=== PATIENT | female | born 1990 | race Hispanic/Latino ===

== ENCOUNTER 2017-06-04 12:56 | Emergency (ER) | payer SELFPAY ==
[2017-06-04] MEDS ORDERED: Fluorescein Opthalmic Strip ONE (13:46)
[2017-06-04] MEDS ORDERED: Proparacaine 0.5% Opth 15 ML BOT ONE (13:46)
[2017-06-04] MEDS ORDERED: Ciprofloxacin 0.3% Ophth Drops 2.5 ml Bottle R EYE SCH (14:30)
[2017-06-04] MEDS ORDERED: Acyclovir 800 mg Tablet PO SCH (15:00)
== END 2017-06-04 15:10 | disposition home or self-care (01) ==
LOC: ERS 12:56
DX: B02.9 Zoster without complications (principal)
CPT/HCPCS: 99282

== ENCOUNTER 2017-08-25 11:44 | Observation (INO) | payer SELFPAY ==
[~2017-08-25 11:44] MED LIST: ISOVUE-370 76%-LOCM 1 ML ONE
[2017-08-25] MEDS ORDERED: Acetaminophen 500 MG TAB ONE (13:11)
[2017-08-25 13:35] LABS: #Eosinphils 0.1 thou/uL (0.0-0.7); #Lymphocytes 2.2 thou/uL (1.20-3.40); #Monocytes 0.8 thou/uL (0.11-0.59); %Basophils 0.3 % (0.0-1.0); %Eosinophils 0.9 % (0.0-10.0); %Lymphocytes 31.6 % (21.0-51.0); %Monocytes 10.7 % (0.0-10.0); %Neutrophils 56.5 % (42.0-75.0); Hemoglobin 13.4 g/dL (12.0-16.0); Mean Corpuscular HGB CONC 35.5 g/dL (32.0-36.0); Mean Corpuscular Hemoglobin 29.5 pg (27.0-31.0); Mean Corpuscular Volume 83.1 fl (81.0-99.0); Mean Platelet Volume 8.1 fL (7.4-10.4); Platelet Count 248 thou/uL (130-400); RBC Distribution Width 11.1 % (11.5-14.5); Red Blood Cell (RBC) Count 4.52 mill/uL (4.20-5.40)
--- NOTE | 2017-08-25 14:00 | RAD ---
PORTABLE UPRIGHT CHEST: HISTORY: A 26-year-old female with a history of a headache and flu symptoms. Sepsis alert. COMPARISON: 12/23/2015 FINDINGS: Heart size is normal. Lungs are clear. No pneumonia, edema, pleural effusion, or other acute proces s. POS: [facility]
[2017-08-25 14:12] LABS: Bilirubin Small (Negative); Blood, Urine Negative (Negative); Clarity CLEAR (Clear); Glucose, Urine (Dipstick) Negative (Negative); Leukocyte Moderate (Negative); Nitrite Negative (Negative); Protein, Urine (Dipstick) Negative (Neg-Trace); Specific Gravity, Urine 1.023 (1.002-1.036)
[2017-08-25 14:13] LABS: Pregnancy Test - Urine (BHCG) Negative (Negative); Pregu Control Background? CLEAR/WHITE (CLR/WHITE); Pregu Control Bar Appear? YES (CONTROL BAR); Specific Gravity 1.023 (1.002-1.036)
[2017-08-25 14:13] LABS: ALT (SGPT) 31 U/L (8-55); AST (SGOT) 40 U/L (5-34); Albumin 4.5 g/dL (3.5-5.0); Alkaline Phosphatase 166 U/L (40-150); Anion Gap 16 mmol/L (10-20); BUN (Urea Nitrogen) 16 mg/dL (7.0-18.7); Bilirubin, Total 0.7 mg/dL (0.2-1.2); Calc. Creatinine Clearance 0 mL/min (70-130); Calcium 9.2 mg/dL (7.8-10.44); Carbon Dioxide 21 mmol/L (22-29); Chloride 100 mmol/L (98-107); Estimated GFR-MDRD 89; Globulin 3.5 g/dL (2.4-3.5); Glucose 77 mg/dL (70-105); Potassium 3.8 mmol/L (3.5-5.1); Sodium 133 mmol/L (136-145)
[2017-08-25 14:14] LABS: Bacteria/HPF None Seen HPF (None Seen); Hyaline Casts/LPF 0-3 HYALINE CAST LPF (0-3 Hyaline); Pathc Cast-AUWi Flag 0.43 (0-2.49); Squamous Epithelial 0-3 HPF (0-3); WBC/HPF 21-50 HPF (0-3)
--- NOTE | 2017-08-25 15:09 | CT ---
ABDOMEN AND PELVIS CT SCAN WITH IV CONTRAST: HISTORY: A 26-year-old female with a history of abdominal pain, primarily umbilical, with fever, headache, and diarrhea. FINDINGS: The lung bases are clear. The visualized liver, gallbladder, pancreas, spleen, and adrenal glands ar e unremarkable. No renal calculi or acute obstruction. There is a minimally abnormally dilated, thick walled, enhancing appendix, evidence for acute appendicitis. No evidence of associated abscess or significant free fluid. No bowel obstruction. IMPRESSION: Evidence for acute appendicitis. Findings were discussed with Coy, because Dr. Blount was in with a patient, and he indicated that nathalia would give her this message, that the patient did have acute appendicitis. This call was made at 3 :03 p.m. JOSEPH CR
[2017-08-25] MEDS ORDERED: diphenhydrAMINE 50 MG/ML VIAL ONE (15:12)
[2017-08-25] MEDS ORDERED: Midazolam HCl 2 mg/2 ml Vial ONE (15:44)
[2017-08-25] MEDS ORDERED: Fentanyl 250 MCG/5 ML VIAL ONE (15:44)
[2017-08-25] MEDS ORDERED: Bupivacaine/Epinephrine 0.25% 30 ML VIAL ONE (15:45)
[2017-08-25] MEDS ORDERED: Lidocaine 1% PF 5 ML VIAL ONE (15:47)
[2017-08-25] MEDS ORDERED: Ondansetron HCl/PF 4 MG/2 ML Vial ONE (15:47)
[2017-08-25] MEDS ORDERED: Glycopyrrolate 0.2 MG/ML 5 ML SYRINGE ONE (15:47)
[2017-08-25] MEDS ORDERED: Succinylcholine Chloride 20 MG/ML 10 ml SYRINGE FS ONE (15:47)
[2017-08-25] MEDS ORDERED: Ketorolac Tromethamine 30 MG/ML VIAL ONE (15:47)
[2017-08-25] MEDS ORDERED: ePHEDrine/0.9% NaCl/PF SYRINGE 50 mg/10 ml ONE (15:47)
[2017-08-25] MEDS ORDERED: Dexamethasone 20 MG/5 ML VIAL ONE (15:47)
[2017-08-25] MEDS ORDERED: Propofol 200 MG/20 ML VIAL ONE (15:47)
[2017-08-25] MEDS ORDERED: PHENYLEPHRINE-NS 100 MCG/ML 10 ML SYRINGE ONE (15:47)
--- NOTE | 2017-08-25 16:14 | HP ---
DATE OF ADMISSION: 08/25/2017 HISTORY OF PRESENT ILLNESS: [facility] is [facility] 26[facility] a [facility] of insidious onset periumbilical abdominal pain which started 4 days ago. Pain in tensified over 24 hours and got better. As a result, the patient assumed nothing of it. Forty eight hours into the onset of pain, she started having some fever intermittently and chills ass ociated with some diarrhea. The patient presented to the emergency department today because the pain had failed to resolve. In fact, she reports pain has intensified and now settled in the right lower quadrant. She denies any emesis; however, reports multiple episodes of nausea. She admits to chill s, not febrile at this time. PAST MEDICAL HISTORY: She denies any previous medical problems. PAST SURGICAL HISTORY: The patient denies any previous surgeries. SOCIAL HISTORY: She is single, currently unemployed and lives at home with her parents. She denies any cigarette smoking, ethanol or illicit drug abuse. FAMILY HISTORY: Notable for diabetes mellitus in both parents and her father with essential hyperten elenita and heart disease. She denies any family history of cancer. CURRENT MEDICATIONS: None. ALLERGIES: Patient denies any known drug allergies. REVIEW OF SYSTEMS: Ten point review of system is essentially unremarkable except for as stated in pa st medical history and chief complaint. PHYSICAL EXAMINATION: GENERAL: This reveals a 26-year-old normally developed woman who is otherwise coherent and interacti ve and appears stated age. The patient is alert and oriented x3, appears to be in moderate acute dis tress secondary to right lower quadrant abdominal pain. VITAL SIGNS: Currently includes blood pressure 95/54, pulse is 91, respiratory rate 18, temperature is 98.7 degrees Fahrenheit, oxygen saturation is 97% on room air. HEENT: Reveals normocephalic and atraumatic. Pupils are equal, round, reactive to light and accommo dation. Extraocular muscles are intact bilaterally. She has no sclerae icterus present. Oral mucos a is pink and moist. No lesions are noted. NECK: Supple. No palpable lymphadenopathy or thyromegaly present. HEART: Reveals regular rate and rhythm, no murmurs or gallops auscultated. LUNGS: Clear to auscultation bilaterally. Her breathing is regular and unlabored. ABDOMEN: Soft and protuberant. She has right lower quadrant tenderness to palpation. She has a pos itive Rovsing sign. Liver and spleen are otherwise nonpalpable below costal margins. EXTREMITIES: Reveals 2+ radial and pedal pulses bilaterally. No ankle edema is present. NEUROLOGIC: Cranial nerves II through XII grossly intact bilaterally. No focal neurologic deficits are present. PERTINENT LABORATORY FINDINGS: Includes CBC with 7000 white blood cells, hemoglobin 13.4, hematocrit is 37.6, platelet count is 248,000. Metabolic profile: Sodium 133, potassium 3.8, chloride is 100, bicarbonate 21, BUN 16, creatinine 0.77, glucose 77, total bilirubin 0.7; AST and ALT 40 and 31 resp ectively. Alkaline phosphatase is 166. Urinalysis is significant for moderate leukocyte esterase, 2 1-50 wbc's, 0-3 squamous epithelial cells, no bacteria. test is negative. I personally re viewed the CT scan of the abdomen and pelvis which is remarkable for dilated appendix with periappend iceal fat stranding. IMPRESSION: 1. Acute appendicitis, likely with perforation given 4-day history of abdominal pain. 2. Sterile pyuria, likely secondary to acute appendicitis. PLAN: 1. Laparoscopic appendectomy. 2. I advised the patient of the above findings and recommendation. I have also informed the patient of the risk and benefits of the proposed surgery. Risks include, bu t not limited to bleeding, infection, injury to bowel and surrounding structures. This information was given to the patient in the presence of her nurse. She indicates understanding of the information given. I answered her questions. The patient has granted consent for this admiss ion and surgical intervention.
[2017-08-25] MEDS ORDERED: Promethazine HCl 25 MG/ML VIAL SLOW IVP PRN (17:11)
[2017-08-25] MEDS ORDERED: Morphine Sulfate 2 MG/ML SYRINGE SLOW IVP PRN (17:11)
[2017-08-25] MEDS ORDERED: Meperidine HCl/PF 25 MG/ML VIAL SLOW IVP PRN (17:11)
[2017-08-25] MEDS ORDERED: Ondansetron HCl/PF 4 MG/2 ML Vial IVP PRN (18:02)
[2017-08-25] MEDS ORDERED: Dextrose 50% Abboject 50 ML SYRINGE SLOW IVP PRN (18:02)
[2017-08-25] MEDS ORDERED: hydrALAZINE 20 MG/ML VIAL SLOW IVP PRN (18:02)
[2017-08-25] MEDS ORDERED: Promethazine HCl 25 MG/ML VIAL IM PRN (18:02)
[2017-08-25] MEDS ORDERED: Dextrose 5% in Water 1,000 ML IV PRN (18:02)
[2017-08-25] MEDS ORDERED: Ketorolac Tromethamine 30 MG/ML VIAL IVP PRN (18:02)
[2017-08-25] MEDS ORDERED: traMADol HCl 50 MG TAB PO PRN ×2 (18:04)
--- NOTE | 2017-08-25 18:43 | OP ---
DATE OF OPERATION: 08/25/2017 PREOPERATIVE DIAGNOSIS: Acute appendicitis. POSTOPERATIVE DIAGNOSIS: Acute appendicitis with a retrocecal appendix. PROCEDURES PERFORMED: Laparoscopic appendectomy. SURGEON: Calvin Santiago D.O. ANESTHESIA: General endotracheal. ESTIMATED BLOOD LOSS: 10 mL. FLUIDS GIVEN: 1000 mL crystalloids. URINARY OUTPUT: 650 mL. COUNTS: Sponge and instrument count certified as correct x2. COMPLICATIONS: None apparent at the time of operation. INDICATIONS FOR PROCEDURE: This is a 26-year-old woman presented with 4-day history of abdo lexi pain. Clinical and radiographic examination was consistent with acute appendicitis for which ghada chappell was brought to the operating room for appendectomy. Findings are consistent with inflamed retrocecal appendix, no evidence of perforation. DESCRIPTION OF PROCEDURE: Informed consent was obtained from the patient who was brought to the oper ating room and placed in supine position. Following general anesthesia, Varma catheter was inserted and placed bedside drain. Abdomen was sterilely prepped and draped in usual fashion. The skin below the umbilicus was infiltrated with 0.25% Marcaine with epinephrine. A small curvilinear infraumbili rio incision was made using an 11 scalpel. Umbilical stalk was grasped with a Alpesh and elevated. Veress needle was inserted through the incision and placed in the peritoneal cavity through which the abdomen was insufflated with 3 liters of CO2 gas. Intraabdominal pressure was noted at 1 mmHg. Fol lowing abdominal insufflation, Veress needle was removed and a 5-mm trocar inserted through the incis ion and placed in the peritoneal cavity using Visiport under laparoscopy. Laparoscopy confirmed prop er placement of the port, no injuries to underlying structures. An additional laparoscopy revealed t he right lower quadrant obscured by omental adhesions. Under direct laparoscopy, 5-mm suprapubic and a 12-mm left lower quadrant ports were placed after the overlying skin was infiltrated with 0.25% Ma rcaine with epinephrine and appropriate incision was made. The patient was placed in a Trendelenburg position, rotated to her left. I introduced the [employer] grasper through the left lower quadrant port site using this to bluntly sushila e down omental adhesions to reveal the cecum in the right lower quadrant. I was able to manipulate the cecum, mobilizing this medially to expose the base of the retrocecal brit endix. The appendix was extended to the right lateral gutter with fibrinous attachments. These were bluntly taken down using a Prestige grasper. I then introduced an Endo Tna forceps through the suprapub ic port site grasping the appendix which was elevated. I used a [place] dissector to create a rent through the base of the mesoappendix. I introduced an Endo-RYAN with a blue load to divide the append ix at appendicocecal junction. Using a white load of the Endo-RYAN, the mesoappendix was divided with good hemostasis. Appendix was delivered of the abdominal cavity using an EndoCatch. Operative site was irrigated with saline. Inspected base for good hemostasis. Finding no other pathology, I ran t he small bowel tube approximately 2 feet. No Meckel's diverticulum was noted. Laparoscopy was termi nated at this juncture. Fascia of the left lower quadrant port was closed using 0 Vicryl suture and Endo closure device under laparoscopy. Abdomen was desufflated. All ports and instruments removed a nd accounted for. Skin incision was closed using 4-0 Monocryl suture in subcuticular fashion. [place]ajaro correia was applied over the incisions. The patient tolerated the operation without any apparent compli cation and was returned to the recovery room in satisfactory condition.
[2017-08-25] MEDS: Lactated Ringer's 1,000 ML IV SCH (19:18)
[2017-08-25] MEDS: Famotidine 20 MG TAB PO SCH (21:19)
[2017-08-25] MEDS: Famotidine/PF 20 mg/2ml Vial SLOW IVP SCH (21:19)
--- NOTE | 2017-08-25 22:28 | PRG ---
DATE OF SERVICE: 08/25/2017 SUBJECTIVE: The patient is status post acute appendicitis with retrocecal appendix. The patient und erwent a laparoscopic appendectomy this afternoon. She tolerated the procedure well and is currently up on the surgical floor. She is awake, alert, and appropriate. Denies any nausea or vomiting or s ignificant abdominal pain. PHYSICAL EXAMINATION: VITAL SIGNS: Temperature is 98.3, heart rate 79, blood pressure 102/66, respirations 14, and oxygen saturation 93% on room air. GENERAL: The patient is resting comfortably. She is alert, oriented, and appropriate. ABDOMEN: Soft, minimally tender. Her postop dressing is clean, dry, and intact. ASSESSMENT AND PLAN: Status post laparoscopic appendectomy. Plan will be to continue supportive car e, p.o. pain medicines, diet as tolerated, and most likely discharge to home tomorrow.
[2017-08-25] MEDS: Acetaminophen 500 MG TAB PO SCH (23:08)
[2017-08-25] MEDS: Piperacillin/Tazobactam 3.375 GM in Sodium Chloride 0.9% 100 ML IVPB SCH (23:08)
[2017-08-26] MEDS: Lactated Ringer's 1,000 ML IV SCH (05:39)
[2017-08-26] MEDS: Acetaminophen 500 MG TAB PO SCH ×2 (05:40→12:30)
[2017-08-26] MEDS: Piperacillin/Tazobactam 3.375 GM in Sodium Chloride 0.9% 100 ML IVPB SCH (05:40)
[2017-08-26] MEDS: Famotidine/PF 20 mg/2ml Vial SLOW IVP SCH (09:00)
[2017-08-26] MEDS: Famotidine 20 MG TAB PO SCH (09:00)
[2017-08-26 11:31] VITALS: BP 95/60; TEMP 97.8
--- NOTE | 2017-08-26 11:48 | DIS ---
DATE OF ADMISSION: 08/25/2017 DATE OF DISCHARGE: 08/26/2017 ADMITTING AND DISCHARGING PHYSICIAN: Calvin Santiago DO ADMITTING AND DISCHARGE DIAGNOSES: Acute appendicitis. OPERATIONS PERFORMED: Laparoscopic appendectomy on 08/25/2017. Please see separate dictation for op erative report. HISTORY AND HOSPITAL COURSE: A 26-year-old woman presented with a 4-day history of abdomina l pain. Clinical radiographic examination was consistent with acute appendicitis for which patient w as brought to the operating room for appendectomy. Following surgery, the patient was admitted to surgical floor where she remained in time of discharge . Postop day #1, she is ambulating with minimum difficulty. Her pain is adequately controlled on oral analgesics. She is tolerating a general diet, having normal bowel and urinary function. Abdominal examination reveals incisional wounds which intact, clean, and dry. She has no peritoneal signs on examination. The patient has remained hemodynamically stable and afebrile through this hospitalization. She has been discharged home today with the following instructions: 1. She sees me in the Surgery [facility] in 2 weeks. She is to avoid weightlifting in excess of 20 poun ds until she has been released by me. She may shower effective tomorrow and avoid swimming or dippin g herself in the bathtub. 2. She is to call me with any questions or problems including exacerbation of abdominal pain, fever in excess of 101 degrees Fahrenheit, abnormal drainage from the incisional wounds or any intolerance to oral intake. Discharge instruction was given to the patient in the presence of a nurse. She indicates understandi ng of information given. She has been given a prescription for tramadol 50 mg #30 to be taken 1-2 p.o. q.6 hours p.r.n. pain may alternate this with Tylenol 1000 mg p.o. q.6 hours or ibuprofen 600 mg p.o. q.8 hours. The patient has expressed deep gratitude for the care and nurture during this hospitalization and jluis gordon.
== END 2017-08-26 15:02 | disposition home or self-care (01) ==
LOC: ERS 11:44 → SJJU 18:38
PROVIDERS: ADMIT Surgery; ATTEND Surgery
PROC: 0DTJ4ZZ Resection of Appendix, Percutaneous Endoscopic Approach (ICD-10-PCS; principal; 2017-08-25)
DX: K35.80 Unspecified acute appendicitis (principal); Z88.2 Allergy status to sulfonamides
CPT/HCPCS: 71045; 74177; 80053; 81003; 81015; 81025; 83605; 85025; 87040; 87086; 87804; 88304; 96361; 96365; 96375; G0378; J0696; J1100; J1200; J1885; J2001; J2250; J2405; J2543; J2704; J3010; J3370; J7050

== ENCOUNTER 2021-06-28 11:02 | Emergency (ER) | payer SELFPAY ==
[2021-06-28] MEDS ORDERED: Acetaminophen 325 MG TAB ONE ×2 (12:02→12:05)
[2021-06-28] MEDS ORDERED: Ibuprofen 200 MG TAB ONE ×2 (12:02→12:06)
[2021-06-28] MEDS ORDERED: Metoclopramide HCl 10 MG TAB ONE (13:00)
[2021-06-28 19:54] LABS: SARS-CoV-2 PCR by NAA DETECTED (NotDetected)
== END 2021-06-28 14:05 | disposition home or self-care (01) ==
LOC: ERS 11:02
DX: U07.1 COVID-19 (principal)
CPT/HCPCS: 70450; U0003; U0005

== ENCOUNTER 2021-06-28 15:50 | Inpatient (IN) | payer OTHER, SELFPAY ==
[2021-06-28 16:47] LABS: #Basophils 0.1 thou/uL (0.0-0.2); #Eosinphils 0.2 thou/uL (0.0-0.7); #Monocytes 0.6 thou/uL (0.11-0.59); #Neutrophils 4.8 thou/uL (1.40-6.50); %Basophils 1.4 % (0.0-1.0); %Eosinophils 2.6 % (0.0-10.0); %Lymphocytes 26.2 % (21.0-51.0); %Monocytes 7.4 % (0.0-10.0); %Neutrophils 62.3 % (42.0-75.0); Hemoglobin 11.3 g/dL (12.0-16.0); Mean Corpuscular HGB CONC 37.3 g/dL (32.0-36.0); Mean Corpuscular Hemoglobin 30.5 pg (27.0-31.0); Mean Corpuscular Volume 81.8 fL (78.0-98.0); Platelet Count 188 thou/uL (130-400); RBC Distribution Width 10.9 % (11.5-14.5); Red Blood Cell (RBC) Count 3.72 mill/uL (4.20-5.40); White Blood Cell (WBC) Count 7.6 thou/uL (4.8-10.8)
[2021-06-28 17:02] LABS: ALT (SGPT) 16 U/L (8-55); AST (SGOT) 30 U/L (5-34); Albumin 4.4 g/dL (3.5-5.0); Alkaline Phosphatase 88 U/L (40-110); Anion Gap 20 mmol/L (10-20); BUN (Urea Nitrogen) 5 mg/dL (7.0-18.7); Bilirubin, Total 0.6 mg/dL (0.2-1.2); Calc. Creatinine Clearance 0 mL/min (70-130); Calcium 8.7 mg/dL (7.8-10.44); Carbon Dioxide 18 mmol/L (22-29); Chloride 75 mmol/L (98-107); Globulin 2.5 g/dL (2.4-3.5); Glucose 65 mg/dL (70-105); Potassium 3.7 mmol/L (3.5-5.1); Protein, Total 6.9 g/dL (6.0-8.3)
[2021-06-28 17:27] LABS: Sodium 109 mmol/L (136-145)
[2021-06-28] MEDS ORDERED: Ketorolac Tromethamine 30 MG/ML VIAL ONE ×2 (18:48→21:14)
[2021-06-28] MEDS ORDERED: Ondansetron PF 4 MG/2 ML Vial ONE ×2 (18:48→20:28)
[2021-06-28 18:50] LABS: Anion Gap 15 mmol/L (10-20); BUN (Urea Nitrogen) 6 mg/dL (7.0-18.7); Calc. Creatinine Clearance 0 mL/min (70-130); Calcium 8.3 mg/dL (7.8-10.44); Carbon Dioxide 19 mmol/L (22-29); Chloride 76 mmol/L (98-107); Glucose 67 mg/dL (70-105); Potassium 3.3 mmol/L (3.5-5.1)
[2021-06-28 18:53] LABS: Sodium 107 mmol/L (136-145)
[2021-06-28] MEDS ORDERED: Electrolyte Replacement Protocol 1 EACH FS SCH (19:30)
[2021-06-28] MEDS: Ondansetron PF 4 MG/2 ML Vial IVP PRN (20:32)
[2021-06-28] MEDS: Ketorolac Tromethamine 30 MG/ML VIAL IVP PRN (21:21)
[2021-06-28] MEDS ORDERED: Acetaminophen 325 MG TAB ONE (21:57)
[2021-06-28] MEDS: Acetaminophen 325 MG TAB PO PRN (22:03)
[2021-06-28 22:26] LABS: Bilirubin Negative (Negative); Blood, Urine Negative (Negative); Glucose, Urine (Dipstick) Negative (Negative); Ketone, Urine > or equal to 80 mg/dL (Negative); Leukocyte Trace (Negative); Nitrite Negative (Negative); Protein, Urine (Dipstick) Negative (Neg-Trace); Urobilinogen 0.2 mg/dL (Less than 2); pH, Urine 6.5 (5.0-9.0)
[2021-06-28 22:27] LABS: Anion Gap 10 mmol/L (10-20); BUN (Urea Nitrogen) 5 mg/dL (7.0-18.7); Calc. Creatinine Clearance 0 mL/min (70-130); Calcium 7.8 mg/dL (7.8-10.44); Carbon Dioxide 20 mmol/L (22-29); Chloride 79 mmol/L (98-107); Glucose 73 mg/dL (70-105); Magnesium 1.5 mg/dL (1.6-2.6); Potassium 3.4 mmol/L (3.5-5.1); Sodium 106 mmol/L (136-145)
[2021-06-28 22:32] LABS: Clarity Clear (Clear)
[2021-06-28 22:35] LABS: Bacteria/HPF 3+ HPF (None Seen); RBC/HPF 0-3 HPF (0-3); Squamous Epithelial 0-3 HPF (0-3)
[2021-06-28] MEDS ORDERED: Potassium Chloride 20 MEQ TAB PO SCH (23:30)
[2021-06-28] MEDS ORDERED: Sodium Chloride 256 MEQ in Sterile Water Injection 936 ML IV SCH (23:30)
[2021-06-28] MEDS ORDERED: Magnesium 2 GM/50 ML 2 GM in Premix Bag 1 BAG IVPB SCH (23:30)
[2021-06-28] MEDS ORDERED: Potassium Chloride 20 MEQ TAB ONE (23:53)
[2021-06-29] MEDS ORDERED: Magnesium 2 GM/50 ML BAG (IN WATER) ONE (00:56)
[2021-06-29] MEDS: Ketorolac Tromethamine 30 MG/ML VIAL IVP PRN (02:01)
[2021-06-29] MEDS: Acetaminophen 325 MG TAB PO PRN ×4 (02:12→23:04)
[2021-06-29] MEDS ORDERED: HYDROcodone/Acetaminophen 7.5/325 mg Tablet PO SCH (03:15)
[2021-06-29] MEDS: Ondansetron PF 4 MG/2 ML Vial IVP PRN ×2 (04:12→13:31)
[2021-06-29 04:19] LABS: #Eosinphils 0.2 thou/uL (0.0-0.7); #Lymphocytes 1.8 thou/uL (1.20-3.40); #Monocytes 0.5 thou/uL (0.11-0.59); #Neutrophils 4.4 thou/uL (1.40-6.50); %Basophils 0.4 % (0.0-1.0); %Eosinophils 2.2 % (0.0-10.0); %Lymphocytes 26.8 % (21.0-51.0); %Monocytes 6.9 % (0.0-10.0); %Neutrophils 63.7 % (42.0-75.0); Hemoglobin 10.9 g/dL (12.0-16.0); Mean Corpuscular HGB CONC 36.6 g/dL (32.0-36.0); Mean Corpuscular Hemoglobin 30.2 pg (27.0-31.0); Mean Corpuscular Volume 82.4 fL (78.0-98.0); Mean Platelet Volume 8.2 fL (7.4-10.4); Platelet Count 196 thou/uL (130-400); RBC Distribution Width 10.9 % (11.5-14.5); White Blood Cell (WBC) Count 6.9 thou/uL (4.8-10.8)
[2021-06-29 04:36] LABS: Anion Gap 13 mmol/L (10-20); BUN (Urea Nitrogen) Less than 4 mg/dL (7.0-18.7); Calc. Creatinine Clearance 100 mL/min (70-130); Calcium 7.8 mg/dL (7.8-10.44); Carbon Dioxide 20 mmol/L (22-29); Chloride 79 mmol/L (98-107); Glucose 62 mg/dL (70-105); Potassium 3.7 mmol/L (3.5-5.1)
[2021-06-29 04:42] LABS: Sodium 108 mmol/L (136-145)
[2021-06-29 09:16] LABS: Anion Gap 12 mmol/L (10-20); BUN (Urea Nitrogen) Less than 4 mg/dL (7.0-18.7); Calc. Creatinine Clearance 98 mL/min (70-130); Calcium 7.8 mg/dL (7.8-10.44); Carbon Dioxide 19 mmol/L (22-29); Chloride 86 mmol/L (98-107); Potassium 4.1 mmol/L (3.5-5.1)
[2021-06-29 09:23] LABS: Glucose 58 mg/dL (70-105); Sodium 113 mmol/L (136-145)
[2021-06-29] MEDS ORDERED: Sodium Chloride 256 MEQ in Sterile Water Injection 936 ML IV SCH (10:30)
[2021-06-29] MEDS ORDERED: Naproxen 500 MG TAB PO SCH (14:55)
[2021-06-29 15:33] LABS: Anion Gap 12 mmol/L (10-20); BUN (Urea Nitrogen) 4 mg/dL (7.0-18.7); Calc. Creatinine Clearance 94 mL/min (70-130); Calcium 8.1 mg/dL (7.8-10.44); Carbon Dioxide 22 mmol/L (22-29); Chloride 84 mmol/L (98-107); Glucose 105 mg/dL (70-105); Potassium 3.6 mmol/L (3.5-5.1)
[2021-06-29 15:44] LABS: Sodium 114 mmol/L (136-145)
[2021-06-29 20:28] LABS: Anion Gap 11 mmol/L (10-20); BUN (Urea Nitrogen) Less than 4 mg/dL (7.0-18.7); Calc. Creatinine Clearance 86 mL/min (70-130); Calcium 8.4 mg/dL (7.8-10.44); Carbon Dioxide 22 mmol/L (22-29); Chloride 91 mmol/L (98-107); Glucose 94 mg/dL (70-105); Potassium 3.8 mmol/L (3.5-5.1); Sodium 120 mmol/L (136-145)
[2021-06-30 04:32] LABS: Anion Gap 13 mmol/L (10-20); BUN (Urea Nitrogen) Less than 4 mg/dL (7.0-18.7); Calc. Creatinine Clearance 94 mL/min (70-130); Calcium 8.7 mg/dL (7.8-10.44); Carbon Dioxide 21 mmol/L (22-29); Chloride 94 mmol/L (98-107); Glucose 72 mg/dL (70-105); Potassium 4.1 mmol/L (3.5-5.1); Sodium 124 mmol/L (136-145)
[2021-06-30 04:46] LABS: #Lymphocytes 1.4 thou/uL (1.20-3.40); #Monocytes 0.4 thou/uL (0.11-0.59); #Neutrophils 3.7 thou/uL (1.40-6.50); %Basophils 0.3 % (0.0-1.0); %Eosinophils 0.9 % (0.0-10.0); %Lymphocytes 24.6 % (21.0-51.0); %Monocytes 7.6 % (0.0-10.0); %Neutrophils 66.6 % (42.0-75.0); Hemoglobin 11.2 g/dL (12.0-16.0); Mean Corpuscular HGB CONC 36.6 g/dL (32.0-36.0); Mean Corpuscular Hemoglobin 30.3 pg (27.0-31.0); Mean Corpuscular Volume 82.8 fL (78.0-98.0); Mean Platelet Volume 7.9 fL (7.4-10.4); Platelet Count 218 thou/uL (130-400); RBC Distribution Width 11.1 % (11.5-14.5); Red Blood Cell (RBC) Count 3.69 mill/uL (4.20-5.40); White Blood Cell (WBC) Count 5.5 thou/uL (4.8-10.8)
[2021-06-30] MEDS: Acetaminophen 325 MG TAB PO PRN ×4 (05:08→22:30)
[2021-06-30] MEDS: Enoxaparin Sodium 30 MG/0.3 ML SYRINGE SC SCH (09:15)
[2021-06-30] MEDS ORDERED: Benzonatate 100 MG CAP PO PRN (09:38)
[2021-06-30] MEDS ORDERED: Sodium Chloride 0.9% 250 ML IV SCH (15:00)
[2021-06-30 18:40] LABS: Anion Gap 12 mmol/L (10-20); BUN (Urea Nitrogen) 6 mg/dL (7.0-18.7); Calc. Creatinine Clearance 83 mL/min (70-130); Calcium 8.5 mg/dL (7.8-10.44); Carbon Dioxide 22 mmol/L (22-29); Chloride 93 mmol/L (98-107); Glucose 70 mg/dL (70-105); Potassium 3.7 mmol/L (3.5-5.1); Sodium 123 mmol/L (136-145)
[2021-06-30] MEDS: guaiFENesin/DM ER PO SCH (19:39)
[2021-06-30] MEDS: Ondansetron PF 4 MG/2 ML Vial IVP PRN (20:33)
[2021-06-30] MEDS ORDERED: ALPRAZolam 0.25 MG TAB PO SCH (23:59)
[2021-07-01 04:21] LABS: Anion Gap 11 mmol/L (10-20); BUN (Urea Nitrogen) 7 mg/dL (7.0-18.7); Calc. Creatinine Clearance 91 mL/min (70-130); Calcium 8.5 mg/dL (7.8-10.44); Carbon Dioxide 24 mmol/L (22-29); Chloride 92 mmol/L (98-107); Glucose 61 mg/dL (70-105); Potassium 4.1 mmol/L (3.5-5.1); Sodium 123 mmol/L (136-145)
[2021-07-01 05:59] VITALS: BMI 20.3
[2021-07-01] MEDS ORDERED: Sodium Chloride 256 MEQ in Sterile Water Injection 936 ML IV SCH (09:00)
[2021-07-01] MEDS: guaiFENesin/DM ER PO SCH ×2 (10:23→21:23)
[2021-07-01] MEDS: Enoxaparin Sodium 30 MG/0.3 ML SYRINGE SC SCH (10:24)
[2021-07-01 15:11] LABS: Anion Gap 13 mmol/L (10-20); BUN (Urea Nitrogen) 8 mg/dL (7.0-18.7); Calc. Creatinine Clearance 83 mL/min (70-130); Calcium 8.5 mg/dL (7.8-10.44); Carbon Dioxide 23 mmol/L (22-29); Chloride 93 mmol/L (98-107); Potassium 4.3 mmol/L (3.5-5.1); Sodium 125 mmol/L (136-145)
[2021-07-01 15:18] LABS: Glucose 57 mg/dL (70-105)
[2021-07-01] MEDS: ALPRAZolam 0.25 MG TAB PO PRN (21:22)
[2021-07-02 04:16] LABS: Anion Gap 14 mmol/L (10-20); BUN (Urea Nitrogen) 4 mg/dL (7.0-18.7); Calc. Creatinine Clearance 87 mL/min (70-130); Calcium 8.6 mg/dL (7.8-10.44); Carbon Dioxide 22 mmol/L (22-29); Chloride 93 mmol/L (98-107); Glucose 66 mg/dL (70-105); Potassium 4.1 mmol/L (3.5-5.1); Sodium 125 mmol/L (136-145)
[2021-07-02] MEDS: guaiFENesin/DM ER PO SCH ×2 (09:11→20:45)
[2021-07-02] MEDS: Enoxaparin Sodium 30 MG/0.3 ML SYRINGE SC SCH (09:11)
[2021-07-02] MEDS ORDERED: Sodium Chloride 256 MEQ in Sterile Water Injection 936 ML IV SCH (09:23)
[2021-07-02 15:25] LABS: Anion Gap 12 mmol/L (10-20); BUN (Urea Nitrogen) Less than 4 mg/dL (7.0-18.7); Calc. Creatinine Clearance 89 mL/min (70-130); Calcium 8.8 mg/dL (7.8-10.44); Carbon Dioxide 24 mmol/L (22-29); Chloride 96 mmol/L (98-107); Glucose 96 mg/dL (70-105); Sodium 128 mmol/L (136-145)
[2021-07-02] MEDS: Acetaminophen 325 MG TAB PO PRN (20:45)
[2021-07-02 22:31] LABS: Anion Gap 12 mmol/L (10-20); BUN (Urea Nitrogen) 5 mg/dL (7.0-18.7); Calc. Creatinine Clearance 83 mL/min (70-130); Calcium 8.7 mg/dL (7.8-10.44); Carbon Dioxide 25 mmol/L (22-29); Chloride 94 mmol/L (98-107); Glucose 74 mg/dL (70-105); Potassium 3.9 mmol/L (3.5-5.1); Sodium 127 mmol/L (136-145)
[2021-07-02] MEDS: ALPRAZolam 0.25 MG TAB PO PRN (23:02)
[2021-07-03] MEDS: guaiFENesin/DM ER PO SCH ×2 (08:09→20:49)
[2021-07-03] MEDS: Enoxaparin Sodium 30 MG/0.3 ML SYRINGE SC SCH (08:09)
[2021-07-03 08:51] LABS: Anion Gap 12 mmol/L (10-20); BUN (Urea Nitrogen) Less than 4 mg/dL (7.0-18.7); Calc. Creatinine Clearance 87 mL/min (70-130); Calcium 8.9 mg/dL (7.8-10.44); Carbon Dioxide 25 mmol/L (22-29); Chloride 100 mmol/L (98-107); Glucose 62 mg/dL (70-105); Sodium 133 mmol/L (136-145)
[2021-07-03] MEDS: Sodium Chloride 1 GM TAB PO SCH (20:49)
[2021-07-04 07:17] LABS: Anion Gap 12 mmol/L (10-20); BUN (Urea Nitrogen) 7 mg/dL (7.0-18.7); Calc. Creatinine Clearance 87 mL/min (70-130); Calcium 9.2 mg/dL (7.8-10.44); Carbon Dioxide 26 mmol/L (22-29); Chloride 98 mmol/L (98-107); Glucose 70 mg/dL (70-105); Sodium 132 mmol/L (136-145)
[2021-07-04] MEDS: guaiFENesin/DM ER PO SCH ×2 (07:39→20:50)
[2021-07-04] MEDS: Enoxaparin Sodium 30 MG/0.3 ML SYRINGE SC SCH (07:39)
[2021-07-04] MEDS: Sodium Chloride 1 GM TAB PO SCH ×3 (07:40→20:50)
[2021-07-05 06:48] LABS: Hemoglobin 10.7 g/dL (12.0-16.0); Mean Corpuscular HGB CONC 33.9 g/dL (32.0-36.0); Mean Corpuscular Hemoglobin 30.4 pg (27.0-31.0); Mean Corpuscular Volume 89.5 fL (78.0-98.0); Mean Platelet Volume 7.4 fL (7.4-10.4); Platelet Count 298 thou/uL (130-400); RBC Distribution Width 11.9 % (11.5-14.5); Red Blood Cell (RBC) Count 3.52 mill/uL (4.20-5.40); White Blood Cell (WBC) Count 6.6 thou/uL (4.8-10.8)
[2021-07-05 07:06] LABS: Anion Gap 10 mmol/L (10-20); BUN (Urea Nitrogen) 10 mg/dL (7.0-18.7); Calc. Creatinine Clearance 86 mL/min (70-130); Calcium 9.8 mg/dL (7.8-10.44); Carbon Dioxide 28 mmol/L (22-29); Chloride 94 mmol/L (98-107); Glucose 71 mg/dL (70-105); Potassium 4.3 mmol/L (3.5-5.1); Sodium 128 mmol/L (136-145)
[2021-07-05] MEDS: Sodium Chloride 1 GM TAB PO SCH ×3 (08:56→20:39)
[2021-07-05] MEDS: Enoxaparin Sodium 30 MG/0.3 ML SYRINGE SC SCH (08:56)
[2021-07-05] MEDS: guaiFENesin/DM ER PO SCH ×2 (08:57→20:39)
[2021-07-05] MEDS ORDERED: Cosyntropin 250 MCG VIAL SLOW IVP SCH (11:00)
[2021-07-05 12:27] LABS: Anion Gap 12 mmol/L (10-20); BUN (Urea Nitrogen) 10 mg/dL (7.0-18.7); Calc. Creatinine Clearance 89 mL/min (70-130); Calcium 9.4 mg/dL (7.8-10.44); Carbon Dioxide 26 mmol/L (22-29); Chloride 93 mmol/L (98-107); Glucose 81 mg/dL (70-105); Potassium 3.7 mmol/L (3.5-5.1); Sodium 127 mmol/L (136-145)
[2021-07-06 07:52] LABS: #Eosinphils 0.2 thou/uL (0.0-0.7); #Lymphocytes 2.4 thou/uL (1.20-3.40); #Monocytes 0.6 thou/uL (0.11-0.59); #Neutrophils 3.4 thou/uL (1.40-6.50); %Basophils 0.7 % (0.0-1.0); %Lymphocytes 36.5 % (21.0-51.0); %Neutrophils 50.8 % (42.0-75.0); Hemoglobin 9.9 g/dL (12.0-16.0); Mean Corpuscular HGB CONC 33.8 g/dL (32.0-36.0); Mean Corpuscular Hemoglobin 30.4 pg (27.0-31.0); Mean Platelet Volume 7.2 fL (7.4-10.4); Platelet Count 340 thou/uL (130-400); RBC Distribution Width 12.2 % (11.5-14.5); Red Blood Cell (RBC) Count 3.26 mill/uL (4.20-5.40); White Blood Cell (WBC) Count 6.7 thou/uL (4.8-10.8)
[2021-07-06 08:03] LABS: Anion Gap 12 mmol/L (10-20); BUN (Urea Nitrogen) 9 mg/dL (7.0-18.7); Calc. Creatinine Clearance 80 mL/min (70-130); Calcium 9.6 mg/dL (7.8-10.44); Carbon Dioxide 26 mmol/L (22-29); Chloride 102 mmol/L (98-107); Glucose 68 mg/dL (70-105); Potassium 4.5 mmol/L (3.5-5.1); Sodium 135 mmol/L (136-145)
[2021-07-06] MEDS: Enoxaparin Sodium 30 MG/0.3 ML SYRINGE SC SCH (08:35)
[2021-07-06] MEDS: guaiFENesin/DM ER PO SCH ×2 (08:35→20:30)
[2021-07-06] MEDS: Sodium Chloride 1 GM TAB PO SCH ×3 (08:36→20:30)
[2021-07-06] MEDS ORDERED: Electrolyte Replacement Protocol 1 EACH FS SCH (20:00)
[2021-07-07] MEDS: Acetaminophen 325 MG TAB PO PRN (04:46)
[2021-07-07] MEDS: Enoxaparin Sodium 30 MG/0.3 ML SYRINGE SC SCH (08:16)
[2021-07-07] MEDS: Sodium Chloride 1 GM TAB PO SCH (08:17)
[2021-07-07] MEDS: guaiFENesin/DM ER PO SCH (08:17)
[2021-07-07 11:57] VITALS: BP 102/71; TEMP 98
[2021-07-07 12:41] LABS: Calcium 9.6 mg/dL (7.8-10.44); Chloride 101 mmol/L (98-107); Sodium 135 mmol/L (136-145)
[2021-07-07 12:42] LABS: Glucose 77 mg/dL (70-105)
[2021-07-07 12:43] LABS: Anion Gap 11 mmol/L (10-20); Carbon Dioxide 27 mmol/L (22-29)
[2021-07-07 12:45] LABS: Calc. Creatinine Clearance 71 mL/min (70-130)
[2021-07-07 12:46] LABS: BUN (Urea Nitrogen) 16 mg/dL (7.0-18.7)
[2021-07-07 12:47] LABS: Magnesium 2.1 mg/dL (1.6-2.6)
== END 2021-07-07 13:02 | disposition home or self-care (01) | DRG 643 ==
LOC: ERS 15:50 → ERHOLD 17:47 → IMCU/EMU 06-29 01:18 → T4-B 07-02 20:37
PROVIDERS: ADMIT Internal Medicine; ATTEND Internal Medicine
PROC: 8E0ZXY6 Isolation (ICD-10-PCS; principal; 2021-06-28)
DX: E22.2 Syndrome of inappropriate secretion of antidiuretic hormone (principal); U07.1 COVID-19; G93.41 Metabolic encephalopathy; N17.9 Acute kidney failure, unspecified; E87.6 Hypokalemia; E83.42 Hypomagnesemia; D64.9 Anemia, unspecified; Z88.1 Allergy status to other antibiotic agents; Z88.2 Allergy status to sulfonamides; Z90.49 Acquired absence of other specified parts of digestive tract
CPT/HCPCS: 36415; 71250; 80048; 80053; 80400; 81003; 81015; 82010; 82533; 83605; 83735; 83930; 83935; 84100; 84300; 84443; 85025; 85027; 93005; 96374; 96375; A4217; J0834; J1650; J1885; J2405; J3475; J7030

== ENCOUNTER 2021-07-18 11:43 | Emergency (ER) | payer SELFPAY ==
[2021-07-18 12:44] LABS: #Basophils 0.1 thou/uL (0.0-0.2); #Eosinphils 0.3 thou/uL (0.0-0.7); #Lymphocytes 2.3 thou/uL (1.20-3.40); #Monocytes 0.3 thou/uL (0.11-0.59); #Neutrophils 1.8 thou/uL (1.40-6.50); %Basophils 2.1 % (0.0-1.0); %Eosinophils 5.3 % (0.0-10.0); %Lymphocytes 47.9 % (21.0-51.0); %Monocytes 6.7 % (0.0-10.0); Hemoglobin 10.4 g/dL (12.0-16.0); Mean Corpuscular HGB CONC 33.3 g/dL (32.0-36.0); Mean Corpuscular Hemoglobin 30.9 pg (27.0-31.0); Mean Corpuscular Volume 93.1 fL (78.0-98.0); Mean Platelet Volume 8.3 fL (7.4-10.4); Platelet Count 228 thou/uL (130-400); Red Blood Cell (RBC) Count 3.35 mill/uL (4.20-5.40); White Blood Cell (WBC) Count 4.7 thou/uL (4.8-10.8)
[2021-07-18] MEDS ORDERED: Lorazepam 1 MG TAB ONE (13:03)
[2021-07-18 13:28] LABS: ALT (SGPT) 21 U/L (8-55); AST (SGOT) 30 U/L (5-34); Albumin 4.3 g/dL (3.5-5.0); Alkaline Phosphatase 80 U/L (40-110); Anion Gap 8 mmol/L (10-20); BUN (Urea Nitrogen) 15 mg/dL (7.0-18.7); Bilirubin, Total 0.4 mg/dL (0.2-1.2); Calc. Creatinine Clearance 0 mL/min (70-130); Calcium 9.3 mg/dL (7.8-10.44); Carbon Dioxide 30 mmol/L (22-29); Chloride 105 mmol/L (98-107); Globulin 2.7 g/dL (2.4-3.5); Glucose 74 mg/dL (70-105); Lipase 36 U/L (8-78); Potassium 3.9 mmol/L (3.5-5.1); Sodium 139 mmol/L (136-145)
== END 2021-07-18 14:40 | disposition home or self-care (01) ==
LOC: ERS 11:43
DX: R11.10 Vomiting, unspecified (principal)
CPT/HCPCS: 36415; 80053; 83690; 85025; 99283

== ENCOUNTER 2022-07-11 17:42 | Emergency (ER) | payer OTHER, SELFPAY ==
[2022-07-11] MEDS ORDERED: Dexamethasone 4 MG TAB ONE (20:14)
[2022-07-11] MEDS ORDERED: Ibuprofen 200 MG TAB ONE (20:14)
== END 2022-07-11 20:19 | disposition home or self-care (01) ==
LOC: ERS 17:42
DX: J02.8 Acute pharyngitis due to other specified organisms (principal)
CPT/HCPCS: 87081; 87430; 99283; J8540

== ENCOUNTER 2024-04-03 09:19 | Emergency (ER) | payer SELFPAY ==
[2024-04-03] MEDS ORDERED: Sodium Chloride 0.9% 100 ML ONE (09:40)
[2024-04-03] MEDS ORDERED: cefTRIAXone (ROCEPHIN) 2 GM VIAL ONE (09:40)
[2024-04-03] MEDS ORDERED: Phenazopyridine HCl 100 MG TAB ONE (10:33)
[2024-04-03 10:41] LABS: Bacteria/HPF None Seen HPF (None Seen); Bilirubin Negative (Negative); Blood, Urine 3+ (Negative); CAUTI Indications for Culture Pelvic or flank pain; Clarity Extra Turbid (Clear); Glucose, Urine (Dipstick) Normal (Negative); Ketone, Urine Negative (Negative); Leukocyte 500 Leu/uL (Negative); Nitrite Negative (Negative); Protein, Urine (Dipstick) 200 mg/dL (Neg-Trace); RBC/HPF Greater than 50 HPF (0-3); Specific Gravity, Urine 1.013 (1.002-1.036); Squamous Epithelial 0-3 HPF (0-3); Urobilinogen Normal mg/dL (Less than 2); WBC/HPF Greater than 50 HPF (0-3)
[2024-04-03 10:43] LABS: Urine Culture Reflex Yes Yes
[2024-04-03] MEDS ORDERED: Azithromycin 250 MG TAB ONE (12:07)
[2024-04-03] MEDS ORDERED: cefTRIAXone (ROCEPHIN) 500 MG VIAL ONE (12:07)
[2024-04-03] MEDS ORDERED: Fluconazole 100 MG TAB ONE (12:07)
[2024-04-03] MEDS ORDERED: Lidocaine 1% MPF 2 ML VIAL ONE (12:08)
[2024-04-03 12:26] LABS: Pregnancy Test - Urine (BHCG) Negative (Negative); Specific Gravity 1.013 (1.002-1.036)
[2024-04-03 12:27] LABS: Pregu Control Background? CLEAR/WHITE (CLR/WHITE); Pregu Control Bar Appear? YES (CONTROL BAR)
[2024-04-04 05:14] LABS: Chlamydia by PCR, Vaginal Swab Not Detected (NotDetected); GC by PCR, Vaginal Swab Not Detected (NotDetected)
== END 2024-04-03 12:36 | disposition home or self-care (01) ==
LOC: ERS 09:19
DX: N76.0 Acute vaginitis (principal); B37.31 Acute candidiasis of vulva and vagina; Z55.6 Problems related to health literacy
CPT/HCPCS: 81001; 81025; 87077; 87086; 87186; 87480; 87491; 87510; 87591; 87660; 96372; 99283; J0696